=== PATIENT | male | born 1945 | race Caucasian/White ===

== ENCOUNTER 2021-12-14 15:51 | Inpatient (IN) | payer MEDICARE ==
[~2021-12-14] VITALS: Ht 182.9 cm; Wt 66.0 kg
[2021-12-14 16:45] LABS: BASOPHILS % (AUTO) 0.4 % (0.0-2.0); EOSINOPHILS % (AUTO) 5.3 % (1.0-6.0); HEMATOCRIT 41.1 % (41-53); HEMOGLOBIN 13.8 g/dL (13.5-17.5); LYMPHOCYTES # (AUTO) 0.4 K/uL (1.0-4.8); LYMPHOCYTES % (AUTO) 8.4 % (22.0-44.0); MEAN CORPUSCULAR HEMOGLOBIN 32.3 pg (26.0-34.0); MEAN CORPUSCULAR HGB CONC 33.6 G/dL (31.0-37.0); MEAN CORPUSCULAR VOLUME 96 fL (80-100); MONOCYTES # (AUTO) 0.6 K/uL (0.1-1.0); NEUTROPHILS # (AUTO) 3.9 K/uL (1.8-7.7); NEUTROPHILS % (AUTO) 73.9 % (40.0-70.0); PLATELET COUNT (AUTO) 257 K/uL (150-450); RED BLOOD CELL COUNT(AUTO) 4.29 MIL/uL (4.50-5.90); RED CELL DISTRIBUTION WIDTH 15.3 % (11.5-14.5)
[2021-12-14 17:00] LABS: ANION GAP 10 mmol/L (8-16); CALCIUM, TOTAL 9.1 mg/dL (8.8-10.5); CARBON DIOXIDE 29 mmol/L (22-29); CHLORIDE 106 mmol/L (98-107); CREATININE 1.34 mg/dL (0.60-1.30); GLOMERULAR FILTR. RATE CALC 52 mL/min (>60); GLUCOSE,RANDOM 119 mg/dL (70-110); POTASSIUM 3.9 mmol/L (3.5-5.1); SODIUM SERUM 145 mmol/L (136-145); UREA NITROGEN, BLOOD 15 mg/dL (7-18)
[2021-12-14 17:05] LABS: ALANINE AMINOTRANSFERASE 13 U/L (12-78); ALBUMIN 3.3 g/dL (3.4-5.0); ALKALINE PHOSPHATASE 62 U/L (46-116); ASPARTATE AMINOTRANSFERASE 12 U/L (15-37); BILIRUBIN,TOTAL 0.4 mg/dL (0.1-1.0); TOTAL PROTEIN, SERUM 7.3 g/dL (6.4-8.2); VALPROIC ACID 6 mcg/mL (50-100)
[2021-12-14 17:12] LABS: PHENYTOIN (DILANTIN) < 0.5 mcg/mL (10.0-20.0)
[2021-12-14] MEDS ORDERED: PERMETHRIN 5% 60 GM CREAM TP ONE (17:15)
[2021-12-14] MEDS ORDERED: VALPROATE BU (20:18)
[2021-12-14] MEDS ORDERED: ACETAMINOPHEN 325 MG TABLET PO PRN (20:30)
[2021-12-14] MEDS ORDERED: ONDANSETRON HCL 4 MG/2 ML VIAL IVP PRN (20:30)
[2021-12-14] MEDS ORDERED: RINGERS SOLUTION,LACTATED 1,000 ML IV ONE (20:30)
[2021-12-14] MEDS ORDERED: VALPROATE SODIUM 1,000 MG in DEXTROSE 5%-WATER 100 ML IV ONE (20:45)
[2021-12-14] MEDS: CefTRIAXone SODIUM 2 GM in DEXTROSE 5%-WATER 50 ML IV SCH (21:31)
[2021-12-14] MEDS: DOXYCYCLINE HYCLATE 100 MG TABLET PO SCH (21:42)
[2021-12-14 22:26] LABS: COVID AG,FIA SOURCE NASOPHARYNGEAL
[2021-12-14] MEDS: 1: MAGNESIUM SULFATE 2 GM, MVI, ADULT NO.1 WITH VIT K 10 ML, THIAMINE 100 MG, FOLIC ACID IV SCH ×5 (23:04)
[2021-12-15] MEDS: HEPARIN SODIUM,PORCINE 5,000 UNITS/ML VIAL SQ SCH ×4 (00:37→23:52)
[2021-12-15 07:54] LABS: ANION GAP 6 mmol/L (8-16); CALCIUM, TOTAL 8.8 mg/dL (8.8-10.5); CARBON DIOXIDE 31 mmol/L (22-29); CHLORIDE 107 mmol/L (98-107); CREATININE 0.93 mg/dL (0.60-1.30); GLOMERULAR FILTR. RATE CALC > 60 mL/min (>60); GLUCOSE,RANDOM 93 mg/dL (70-110); POTASSIUM 4.5 mmol/L (3.5-5.1); SODIUM SERUM 144 mmol/L (136-145); UREA NITROGEN, BLOOD 14 mg/dL (7-18)
[2021-12-15 08:31] VITALS: BP 103/66
[2021-12-15] MEDS: 1: MAGNESIUM SULFATE 2 GM, MVI, ADULT NO.1 WITH VIT K 10 ML, THIAMINE 100 MG, FOLIC ACID IV SCH ×5 (09:42)
[2021-12-15] MEDS: DOXYCYCLINE HYCLATE 100 MG TABLET PO SCH ×2 (09:45→20:41)
[2021-12-15] MEDS ORDERED: MIRT45TA83 PO (11:16)
[2021-12-15] MEDS ORDERED: OLAN2.5T29 PO (11:16)
[2021-12-15] MEDS: CefTRIAXone SODIUM 2 GM in DEXTROSE 5%-WATER 50 ML IV SCH (11:37)
[2021-12-15 11:54] VITALS: BP 106/63
[2021-12-15] MEDS: VALPROATE SODIUM 500 MG in DEXTROSE 5%-WATER 50 ML IV SCH ×2 (12:47→21:27)
[2021-12-15 16:14] VITALS: BP 97/67
[2021-12-15 19:46] VITALS: BP 101/53
[2021-12-15] MEDS: OLANZapine 2.5 MG TABLET PO SCH (20:41)
[2021-12-15] MEDS ORDERED: MIRTAZAPINE 30 MG TABLET PO SCH (21:00)
[2021-12-15 22:43] LABS: APPEARANCE,URINE CLEAR (CLEAR); BILIRUBIN,URINE NEGATIVE (NEGATIVE); GLUCOSE, URINE (UA) NEGATIVE (NEGATIVE); KETONES,URINE NEGATIVE (NEGATIVE); LEUKOCYTE ESTERASE ,URINE NEGATIVE (NEGATIVE); NITRATE,URINE NEGATIVE (NEGATIVE); OCCULT BLOOD,URINE NEGATIVE (NEGATIVE); PROTEIN,URINE NEGATIVE (NEGATIVE); UROBILINOGEN,URINE 0.2 mg/dL (<=1.0)
[2021-12-15 22:44] LABS: BACTERIA,URINE Rare /HPF (None Seen); RBC,URINE None Seen /HPF (0-2); WBC,URINE 0-2 /HPF (0-5)
[2021-12-15 23:20] VITALS: BP 128/60
[2021-12-16 04:33] VITALS: BP 114/53
[2021-12-16 08:17] VITALS: BP 109/65
[2021-12-16] MEDS: HEPARIN SODIUM,PORCINE 5,000 UNITS/ML VIAL SQ SCH ×2 (08:25→16:01)
[2021-12-16] MEDS: DOXYCYCLINE HYCLATE 100 MG TABLET PO SCH ×2 (08:25→21:38)
[2021-12-16] MEDS: VALPROATE SODIUM 500 MG in DEXTROSE 5%-WATER 50 ML IV SCH (10:49)
[2021-12-16 11:37] VITALS: BP 130/64
[2021-12-16] MEDS: CefTRIAXone SODIUM 2 GM in DEXTROSE 5%-WATER 50 ML IV SCH (11:54)
[2021-12-16] MEDS ORDERED: CEPH500C3 PO (15:31)
[2021-12-16 15:59] VITALS: BP 108/65
[2021-12-16 19:57] VITALS: BP 112/65
[2021-12-16] MEDS: OLANZapine 2.5 MG TABLET PO SCH (21:38)
[2021-12-16] MEDS: MIRTAZAPINE 15 MG TABLET PO SCH (21:38)
[2021-12-16] MEDS: DIVALPROEX SODIUM 500 MG DR TABLET PO SCH (21:38)
[2021-12-17] MEDS: HEPARIN SODIUM,PORCINE 5,000 UNITS/ML VIAL SQ SCH ×3 (00:42→16:05)
[2021-12-17 00:43] VITALS: BP 115/63
[2021-12-17 06:23] VITALS: BP 110/68
[2021-12-17 07:42] VITALS: BP 132/73
[2021-12-17] MEDS: DIVALPROEX SODIUM 500 MG DR TABLET PO SCH ×2 (07:57→20:05)
[2021-12-17] MEDS: DOXYCYCLINE HYCLATE 100 MG TABLET PO SCH ×2 (08:01→20:05)
[2021-12-17] MEDS: CefTRIAXone SODIUM 2 GM in DEXTROSE 5%-WATER 50 ML IV SCH (11:02)
[2021-12-17 11:15] VITALS: BP 109/57
[2021-12-17] MEDS ORDERED: PERMETHRIN 5% 60 GM CREAM TP ONE ×2 (14:30→14:45)
[2021-12-17 15:21] VITALS: BP 111/67
[2021-12-17] MEDS: MIRTAZAPINE 15 MG TABLET PO SCH (20:05)
[2021-12-17] MEDS: OLANZapine 2.5 MG TABLET PO SCH (20:05)
[2021-12-17 20:23] VITALS: BP 116/69
[2021-12-18 00:43] VITALS: BP 113/67
[2021-12-18] MEDS: HEPARIN SODIUM,PORCINE 5,000 UNITS/ML VIAL SQ SCH ×2 (00:46→07:42)
[2021-12-18 03:56] VITALS: BP 114/62
[2021-12-18 08:20] VITALS: BP 119/70
[2021-12-18] MEDS: DOXYCYCLINE HYCLATE 100 MG TABLET PO SCH (08:53)
[2021-12-18] MEDS: DIVALPROEX SODIUM 500 MG DR TABLET PO SCH (08:53)
[2021-12-18 11:02] VITALS: BP 107/64
[2021-12-18] MEDS: CefTRIAXone SODIUM 2 GM in DEXTROSE 5%-WATER 50 ML IV SCH (11:39)
[2021-12-18] MEDS ORDERED: DIVA250T4 PO (12:14)
== END 2021-12-18 15:00 | disposition home or self-care (01) | DRG 100 ==
LOC: EMS 16:07 → 5S 12-15 06:38
PROVIDERS: ADMIT Internal Medicine; ATTEND Internal Medicine
DX: G40.909 Epilepsy, unspecified, not intractable, without status epilepticus (principal); E43 Unspecified severe protein-calorie malnutrition; N17.0 Acute kidney failure with tubular necrosis; F33.1 Major depressive disorder, recurrent, moderate; Z68.1 Body mass index [BMI] 19.9 or less, adult; E86.0 Dehydration; W57.XXXA Bitten or stung by nonvenomous insect and other nonvenomous arthropods, initial encounter; Z20.822 Contact with and (suspected) exposure to COVID-19; R00.0 Tachycardia, unspecified; Y93.89 Activity, other specified; Z51.5 Encounter for palliative care; Z79.899 Other long term (current) drug therapy; Y92.89 Other specified places as the place of occurrence of the external cause; Y99.8 Other external cause status
CPT/HCPCS: 70450; 71045; 72125; 80048; 80053; 80164; 80185; 81001; 82948; 84145; 84484; 85025; 86592; 87040; 93005; 95816; 97110; 97162; 97530; 99285; G0480; J0696; J1644; J3411; J3475; J3490; J7030; J7060; J7120; 36415-L1; 36415-TC

== ENCOUNTER 2022-02-06 12:46 | Emergency (ER) | payer MEDICARE ==
[~2022-02-06] VITALS: Ht 177.8 cm; Wt 72.7 kg
[~2022-02-06 12:46] MED LIST: DIVA250T4 PO; MIRT45TA83 PO; OLAN2.5T29 PO
[2022-02-06] MEDS ORDERED: DIVALPROEX SODIUM 250 MG DR TABLET PO ONE (14:15)
[2022-02-06 14:33] VITALS: BP 118/68
== END 2022-02-06 15:32 | disposition home or self-care (01) ==
LOC: EMS 12:46
DX: R56.9 Unspecified convulsions (principal)
CPT/HCPCS: 80164; 99283

== ENCOUNTER 2022-02-08 17:40 | Emergency (ER) | payer MEDICARE ==
[~2022-02-08] VITALS: Ht 172.7 cm; Wt 70.0 kg
[2022-02-08 21:35] VITALS: BP 128/80
== END 2022-02-08 22:37 | disposition home or self-care (01) ==
LOC: EMS 17:40
DX: S09.90XA Unspecified injury of head, initial encounter (principal); Z79.899 Other long term (current) drug therapy; W18.39XA Other fall on same level, initial encounter; Y93.89 Activity, other specified; Y92.89 Other specified places as the place of occurrence of the external cause; Y99.8 Other external cause status
CPT/HCPCS: 70450; 99284

== ENCOUNTER 2022-02-09 10:58 | Inpatient (IN) | payer MEDICARE ==
[~2022-02-09] VITALS: Ht 172.7 cm; Wt 65.9 kg
[2022-02-09 12:07] LABS: BASOPHILS % (AUTO) 0.4 % (0.0-2.0); EOSINOPHILS % (AUTO) 1.6 % (1.0-6.0); HEMATOCRIT 38.7 % (41-53); HEMOGLOBIN 12.9 g/dL (13.5-17.5); LYMPHOCYTES # (AUTO) 1.1 K/uL (1.0-4.8); LYMPHOCYTES % (AUTO) 23.9 % (22.0-44.0); MEAN CORPUSCULAR HEMOGLOBIN 32.6 pg (26.0-34.0); MEAN CORPUSCULAR HGB CONC 33.4 G/dL (31.0-37.0); MEAN CORPUSCULAR VOLUME 98 fL (80-100); MONOCYTES # (AUTO) 0.6 K/uL (0.1-1.0); MONOCYTES % (AUTO) 13.4 % (2.0-9.0); NEUTROPHILS # (AUTO) 2.7 K/uL (1.8-7.7); NEUTROPHILS % (AUTO) 60.7 % (40.0-70.0); PLATELET COUNT (AUTO) 278 K/uL (150-450); RED BLOOD CELL COUNT(AUTO) 3.97 MIL/uL (4.50-5.90); RED CELL DISTRIBUTION WIDTH 16.5 % (11.5-14.5)
[2022-02-09 12:18] LABS: PROTHROMBIN TIME 10.6 SEC (9.4-11.6)
[2022-02-09 12:57] LABS: ANION GAP 12 mmol/L (8-16); CALCIUM, TOTAL 8.9 mg/dL (8.8-10.5); CARBON DIOXIDE 21 mmol/L (22-29); CHLORIDE 106 mmol/L (98-107); CREATININE 1.09 mg/dL (0.60-1.30); GLOMERULAR FILTR. RATE CALC > 60 mL/min (>60); GLUCOSE,RANDOM 96 mg/dL (70-110); POTASSIUM 3.8 mmol/L (3.5-5.1); SODIUM SERUM 139 mmol/L (136-145); UREA NITROGEN, BLOOD 18 mg/dL (7-18)
[2022-02-09 13:03] LABS: ALANINE AMINOTRANSFERASE 18 U/L (12-78); ALBUMIN 3.3 g/dL (3.4-5.0); ALKALINE PHOSPHATASE 46 U/L (46-116); ASPARTATE AMINOTRANSFERASE 19 U/L (15-37); BILIRUBIN,TOTAL 0.2 mg/dL (0.1-1.0); TOTAL PROTEIN, SERUM 7.2 g/dL (6.4-8.2)
[2022-02-09] MEDS ORDERED: 0.9% SODIUM CHLORIDE 10 ML SYRINGE IVP PRN (15:45)
[2022-02-09] MEDS ORDERED: ONDANSETRON HCL 4 MG/2 ML VIAL IVP PRN ×2 (15:45→20:30)
[2022-02-09] MEDS ORDERED: ACETAMINOPHEN 325 MG TABLET PO PRN ×2 (15:45→20:30)
[2022-02-09 15:50] LABS: COVID AG,FIA SOURCE NASAL SWAB
[2022-02-09] MEDS ORDERED: MAGNESIUM HYDROXIDE SUSPENSION 30 ML UDCUP PO PRN (20:30)
[2022-02-09] MEDS ORDERED: BISACODYL 10 MG RECTAL RECTAL SUPPOSITORY PR PRN (20:30)
[2022-02-09] MEDS ORDERED: IPRATROPIUM BROMIDE 0.5 MG/2.5 ML NEB SOLUTION NEB PRN (20:30)
[2022-02-09] MEDS ORDERED: HYDROCODONE/ACETAMINOPHEN 5-325 MG TABLET PO PRN (20:30)
[2022-02-09] MEDS ORDERED: MORPHINE SULFATE 2 MG/ML SYRINGE IVP PRN (20:30)
[2022-02-09] MEDS ORDERED: ALBUTEROL SULFATE 2.5 MG/0.5 ML NEB SOLUTION NEB PRN (20:30)
[2022-02-09] MEDS ORDERED: ZOLPIDEM TARTRATE 5 MG TABLET PO PRN (20:30)
[2022-02-09 20:55] VITALS: BP 121/73
[2022-02-09] MEDS: MIRTAZAPINE 15 MG TABLET PO SCH (21:00)
[2022-02-09] MEDS ORDERED: DIVALPROEX SODIUM 250 MG DR TABLET PO SCH (21:00)
[2022-02-09] MEDS: OLANZapine 2.5 MG TABLET PO SCH (21:00)
[2022-02-09] MEDS: DOCUSATE SODIUM 100 MG CAPSULE PO SCH (21:00)
[2022-02-09 22:50] LABS: APPEARANCE,URINE CLEAR (CLEAR); BILIRUBIN,URINE NEGATIVE (NEGATIVE); GLUCOSE, URINE (UA) NEGATIVE (NEGATIVE); KETONES,URINE NEGATIVE (NEGATIVE); LEUKOCYTE ESTERASE ,URINE NEGATIVE (NEGATIVE); NITRATE,URINE NEGATIVE (NEGATIVE); OCCULT BLOOD,URINE NEGATIVE (NEGATIVE); PROTEIN,URINE NEGATIVE (NEGATIVE); SPECIFIC GRAVITIY, URINE 1.021 (1.003-1.030); UROBILINOGEN,URINE <=1.0 mg/dL (<=1.0)
[2022-02-09] MEDS: DIVALPROEX SODIUM 500 MG DR TABLET PO SCH (23:12)
[2022-02-09] MEDS: HEPARIN SODIUM,PORCINE 5,000 UNITS/ML VIAL SQ SCH (23:13)
[2022-02-10 04:30] VITALS: BP 119/80
[2022-02-10] MEDS: LEVOTHYROXINE SODIUM 25 MCG TABLET PO SCH (05:53)
[2022-02-10 08:00] VITALS: BP 126/82
[2022-02-10] MEDS ORDERED: PANTOPRAZOLE SODIUM 40 MG/VIAL IVP SCH (09:00)
[2022-02-10] MEDS: BuPROPion HCL 100 MG TABLET PO SCH (09:13)
[2022-02-10] MEDS: HEPARIN SODIUM,PORCINE 5,000 UNITS/ML VIAL SQ SCH ×3 (09:13→23:43)
[2022-02-10] MEDS: DIVALPROEX SODIUM 500 MG DR TABLET PO SCH ×2 (09:13→21:42)
[2022-02-10] MEDS: DULoxetine HCL 60 MG CAPSULE PO SCH (09:13)
[2022-02-10] MEDS: DOCUSATE SODIUM 100 MG CAPSULE PO SCH ×2 (09:13→21:42)
[2022-02-10] MEDS: TAMSULOSIN HCL 0.4 MG CAPSULE PO SCH ×2 (09:13→21:42)
[2022-02-10 13:30] VITALS: BP 109/66
[2022-02-10 21:01] VITALS: BP 99/66
[2022-02-10] MEDS: OLANZapine 2.5 MG TABLET PO SCH (21:42)
[2022-02-10] MEDS: ATORVASTATIN CALCIUM 40 MG TABLET PO SCH (21:42)
[2022-02-10] MEDS: MIRTAZAPINE 15 MG TABLET PO SCH (21:42)
[2022-02-11 05:33] VITALS: BP 133/77
[2022-02-11] MEDS: LEVOTHYROXINE SODIUM 25 MCG TABLET PO SCH (06:44)
[2022-02-11 08:23] VITALS: BP 130/81
[2022-02-11] MEDS: TAMSULOSIN HCL 0.4 MG CAPSULE PO SCH ×2 (08:35→20:57)
[2022-02-11] MEDS: HEPARIN SODIUM,PORCINE 5,000 UNITS/ML VIAL SQ SCH ×2 (08:35→16:05)
[2022-02-11] MEDS: DIVALPROEX SODIUM 500 MG DR TABLET PO SCH ×2 (08:35→20:57)
[2022-02-11] MEDS: DOCUSATE SODIUM 100 MG CAPSULE PO SCH ×2 (08:36→20:57)
[2022-02-11] MEDS: BuPROPion HCL 100 MG TABLET PO SCH (08:36)
[2022-02-11] MEDS: DULoxetine HCL 60 MG CAPSULE PO SCH (08:36)
[2022-02-11] MEDS: PANTOPRAZOLE SODIUM 40 MG DR TABLET PO SCH (09:57)
[2022-02-11 16:15] VITALS: BP 115/76
[2022-02-11 20:00] VITALS: BP 106/59
[2022-02-11] MEDS: MIRTAZAPINE 15 MG TABLET PO SCH (20:57)
[2022-02-11] MEDS: OLANZapine 2.5 MG TABLET PO SCH (20:57)
[2022-02-11] MEDS: ATORVASTATIN CALCIUM 40 MG TABLET PO SCH (20:57)
[2022-02-12] MEDS: HEPARIN SODIUM,PORCINE 5,000 UNITS/ML VIAL SQ SCH ×2 (01:15→08:36)
[2022-02-12 04:20] VITALS: BP 128/79
[2022-02-12] MEDS: LEVOTHYROXINE SODIUM 25 MCG TABLET PO SCH (06:10)
[2022-02-12 07:53] VITALS: BP 122/82
[2022-02-12] MEDS: BuPROPion HCL 100 MG TABLET PO SCH (08:34)
[2022-02-12] MEDS: TAMSULOSIN HCL 0.4 MG CAPSULE PO SCH (08:35)
[2022-02-12] MEDS: PANTOPRAZOLE SODIUM 40 MG DR TABLET PO SCH (08:35)
[2022-02-12] MEDS: DULoxetine HCL 60 MG CAPSULE PO SCH (08:35)
[2022-02-12] MEDS: DIVALPROEX SODIUM 500 MG DR TABLET PO SCH (08:35)
[2022-02-12] MEDS: DOCUSATE SODIUM 100 MG CAPSULE PO SCH (08:35)
[2022-02-12 08:39] LABS: COVID AG,FIA SOURCE NASOPHARYNGEAL
[2022-02-12] MEDS ORDERED: ATOR40TA28 PO (10:17)
[2022-02-12] MEDS ORDERED: BUPR-121 PO (10:18)
[2022-02-12] MEDS ORDERED: DIVA-112 PO (10:18)
[2022-02-12] MEDS ORDERED: DULO60CA98 PO (10:19)
[2022-02-12] MEDS ORDERED: PANT-31 PO (10:20)
[2022-02-12] MEDS ORDERED: LEVO125T95 PO (10:20)
[2022-02-12] MEDS ORDERED: OLAN2.5T29 PO (10:20)
[2022-02-12] MEDS ORDERED: MIRT30 PO (10:20)
[2022-02-12] MEDS ORDERED: TAMS-13 PO (10:21)
[2022-02-12] MEDS ORDERED: IPRAHFA IH (10:24)
== END 2022-02-12 14:45 | DRG 92 ==
LOC: EMS 10:59 → 6S 16:41
PROVIDERS: ADMIT Hospitalist; ATTEND Hospitalist
DX: R26.81 Unsteadiness on feet (principal); E44.0 Moderate protein-calorie malnutrition; R29.6 Repeated falls; R53.81 Other malaise; E03.9 Hypothyroidism, unspecified; D64.9 Anemia, unspecified; Z20.822 Contact with and (suspected) exposure to COVID-19; E78.5 Hyperlipidemia, unspecified; I10 Essential (primary) hypertension; J45.909 Unspecified asthma, uncomplicated; Z79.899 Other long term (current) drug therapy; Z68.22 Body mass index [BMI] 22.0-22.9, adult
CPT/HCPCS: 70450; 71045; 80053; 81003; 84484; 85025; 85610; 85730; 87081; 93005; 97162; 99285; C9113; J1644; 36415-L1; 36415-TC